=== PATIENT | female | born 1990 | race Caucasian/White ===

== ENCOUNTER 2016-12-03 09:46 | Inpatient (IN) ==
[2016-12-03 10:18] LABS: Bilirubin,Urine Negative (Negative); Blood,Urine Negative (Negative); Clarity,Urine Cloudy (Clear); Color,Urine Yellow (Yellow); Glucose,Urine (UA) Normal (Normal); Ketones,Urine Negative (Negative); Leukocyte Esterase,Urine Small (Negative); Nitrite,Urine Negative (Negative); PH,Urine 7.5 pH Units (5.0-8.0); Protein,Urine Negative (Neg-Trace); Specific Gravity,Urine 1.023 (1.010-1.025); Urobilinogen,Urine Normal (Normal)
[2016-12-03 10:22] LABS: Bacteria,Urine Moderate per hpf (None-Few); Hyaline Casts,Urine None Seen per lpf (None-Few); RBC,Urine 0-3 per hpf (0-3); Squamous Epithelial Cell,Urine Many per lpf (None-Few)
[2016-12-03 10:24] LABS: Basophils % 0.3 %; Eosinophils # 0.2 K/mcL (0.0-0.6); Eosinophils % 2.5 %; Hematocrit 42.1 % (35.3-44.9); Hemoglobin 13.3 g/dL (11.5-15.4); Immature Granulocytes % 0.3 % (0-4); Lymphocytes # 2.7 K/mcL (0.6-4.6); Lymphocytes % 28.7 %; Mean Corpuscular HGB Conc 31.6 g/dL (31.6-35.5); Mean Corpuscular Hemoglobin 25.6 pg (28.0-33.3); Mean Platelet Volume 9.4 fL (9.4-12.4); Monocytes # 0.9 K/mcL (0.0-1.3); Monocytes % 9.7 %; Neutrophils # 5.4 K/mcL (1.6-8.9); Platelet Count 329 K/mcL (140-400); Red Cell Distribution Width 13.3 % (11.5-14.5); Segmented Neutrophils % 58.5 %
[2016-12-03 10:25] LABS: Amphetamine Screen,Urine Negative ng/mL (Cutoff=1000); Barbiturate Screen,Urine Negative ng/mL (Cutoff=200); Benzodiazepines Screen,Urine Negative ng/mL (Cutoff=200); Cannabinoid Screen,Urine Negative ng/mL (Cutoff = 50); Cocaine Screen,Urine Negative ng/mL (Cutoff= 300); Opiate Screen,Urine Negative ng/mL (Cutoff=300); Phencyclidine Screen,Urine Negative ng/mL (Cutoff=25)
[2016-12-03 10:36] LABS: BUN/Creatinine Ratio 11 (6-26); Blood Urea Nitrogen 8 mg/dL (7-20); Calcium 9.4 mg/dL (8.6-10.8); Carbon Dioxide 23 mEq/L (19-29); Chloride 105 mEq/L (98-109); Glucose 91 mg/dL (70-99); Osmolality,Calculated 288 (280-300); Potassium 3.9 mEq/L (3.5-4.5); Sodium 140 mEq/L (136-145); eGFR For African Americans > 60 (> 60); eGFR For Non-African Americans > 60 (> 60)
[2016-12-03 10:39] LABS: Acetaminophen < 1.0 mcg/mL (10-30); Ethanol < 10 mg/dL (0-10); Salicylate < 5.0 mg/dL (15-30)
[2016-12-03 10:53] LABS: Thyroid Stimulating Hormone 2.382 mcIU/mL (0.350-4.840)
--- NOTE | 2016-12-03 11:29 | Emergency Department Note ---
Disposition Clinical Impression: Depression, Suicidal ideation Disposition: Admitted As Inpatient Condition: Good Referrals: NONE,PCP [Primary Care Provider] - Forms: ED Satisfaction Letter Time of Disposition: 13:27 Psych HPI - General Chief Complaint: ED Psychiatric Symptoms Stated Complaint: si Time Seen by Provider: 12/03/16 09:57 Source: patient Nursing Notes Reviewed: Yes Vital Signs Reviewed: Yes - History of Present Illness HPI Narrative: 26-year-old female presents emergency room for suicidal thoughts. Patient was seen by her psychiatrist pink slipped to the ER for depression and suicidal ideation. She states she does not have a current plan as thoughts of killing herself. No previous attempts. Long history of depression. No homicidal thoughts. She denies any drugs or alcohol. She states her entire life as well as upsets her. Her life has made her severely depressed to the point where she feels like she cannot go on. She lives with her family including her mother. - Related Data Home Medications Medication Instructions Recorded Confirmed Zolpidem [Ambien] 10 mg PO HS PRN 08/26/15 07/22/16 Omeprazole [PriLOSEC] 40 mg PO BID 04/24/16 07/22/16 lamoTRIgine [Lamictal] 75 mg PO BID 04/24/16 07/22/16 Previous Rx's Medication Instructions Recorded HydrOXYzine Pamoate [Vistaril] 50 mg PO Q6H PRN #20 capsule 07/22/16 predniSONE [PredniSONE] 20 mg PO DAILY #16 tablet 07/22/16 Allergies Allergy/AdvReac Type Severity Reaction Status Date / Time No Known Allergies Allergy Verified 07/22/16 20:19 Review of Systems: Gen.: No fevers or chills or new weakness Eyes: Denies double vision or any vision changes Ears: Denies any otalgia Pharynx: Denies sore throat CV: Denies chest pain. Denies palpitations Respiratory: Denies any cough or sputum production. No shortness of breath. GI: Denies any nausea, vomiting, diarrhea, constipation. Denies abdominal pain Neuro: Denies any headache. No problems with ambulation. No numbness. Skin: Denies any rashes or abrasions Psych: positive for depression and suicidal ideation Musculoskeletal: Denies any arthralgias or myalgias Past Medical History - Past Medical History Medical history: Reports: GERD Psychiatric history: Reports: anxiety, depression - Social History Smoking Status: Current every day smoker Smokeless Tobacco Status: No Alcohol use: Reports: occasionally Drug use: Reports: none Physical Exam HEENT: Head atraumatic normocephalic. Pharynx clear with no exudates. Oral mucosa moist. Uvula midline. TMs clear bilaterally. Trachea midline. No lymphadenopathy. Heart: Regular rate and rhythm. Normal S1 and S2. No gallops, rubs, or murmurs. Lungs: Clear to auscultation bilaterally. No evidence of any rhonchi wheezing or rales. Abdomen: Soft nontender nondistended. Positive bowel sounds. No peritoneal signs. Extremities: No evidence of cyanosis clubbing or edema. Neuro: Cranial nerves II through XII grossly intact. No focal motor or sensory deficits. Speech is clear. Skin: Normal color. dry. Psych: normal mentation. - General Limitations: no limitations General appearance: alert Course Vital Signs Temperature 98.8 F 12/03/16 09:47 Pulse Rate 73 12/03/16 09:47 Respiratory Rate 16 12/03/16 09:47 Blood Pressure 144/93 12/03/16 09:47 O2 Sat by Pulse Oximetry 97 12/03/16 09:47 Temperature 98.8 F 12/03/16 09:55 Pulse Rate 73 12/03/16 09:58 Respiratory Rate 16 12/03/16 09:58 Blood Pressure 144/93 12/03/16 09:58 O2 Sat by Pulse Oximetry 97 12/03/16 09:58 Oxygen Delivery Oxygen Delivery Room Air Psych - MDM Narrative Medical decision making narrative: pt likely to be admitted for psych eval labs all reviewed awaiting 1A placement - Medical Records Medical records reviewed: Yes I reviewed the patient's medical records. - Lab Data Lab results reviewed: Yes I reviewed the patient's lab results. Result diagrams: 12/03/16 10:16 12/03/16 10:16 Lab Results 12/03/16 12/03/16 12/03/16 Range/Units 10:12 10:13 10:16 WBC (4.3-11.1) K/mcL RBC (3.82-4.97) M/mcL Hgb (11.5-15.4) g/dL Hct (35.3-44.9) % MCV (83.0-100.0) fL MCH (28.0-33.3) pg MCHC (31.6-35.5) g/dL RDW (11.5-14.5) % Plt Count (140-400) K/mcL MPV (9.4-12.4) fL Immature Gran % (0-4) % Seg Neutrophils % % Lymphocytes % % Monocytes % % Eosinophils % % Basophils % % Neutrophils # (1.6-8.9) K/mcL Lymphocytes # (0.6-4.6) K/mcL Monocytes # (0.0-1.3) K/mcL Eosinophils # (0.0-0.6) K/mcL Basophils # (0.0-0.2) K/mcL Sodium (136-145) mEq/L Potassium (3.5-4.5) mEq/L Chloride (98-109) mEq/L Carbon Dioxide (19-29) mEq/L BUN (7-20) mg/dL Creatinine (0.57-1.11) mg/dL Est GFR ( Amer) (> 60) Est GFR (Non-Af Amer) (> 60) BUN/Creatinine Ratio (6-26) Glucose (70-99) mg/dL Calculated Osmolality (280-300) Calcium (8.6-10.8) mg/dL TSH (0.350-4.840) mcIU/mL Serum , Qual Negative (Negative) Urine Color Yellow (Yellow) Urine Clarity Cloudy A (Clear) Urine pH 7.5 (5.0-8.0) pH Units Ur Specific [place] 1.023 (1.010-1.025) Urine Protein Negative (Neg-Trace) mg/dL Urine Glucose (UA) Normal (Normal) mg/dL Urine Ketones Negative (Negative) mg/dL Urine Blood Negative (Negative) Urine Nitrite Negative (Negative) Urine Bilirubin Negative (Negative) Urine Urobilinogen Normal (Normal) mg/dL Ur Leukocyte Esterase Small H (Negative) Urine Microscopic RBC 0-3 (0-3) per hpf Urine Microscopic WBC 5-15 H (0-3) per hpf Ur Squamous Epith Cells Many H (None-Few) per lpf Urine Bacteria Moderate H (None-Few) per hpf Hyaline Casts None Seen (None-Few) per lpf Salicylates (15-30) mg/dL Urine Opiates Screen Negative (Lqepev=068) ng/mL Acetaminophen (10-30) mcg/mL Ur Barbiturates Screen Negative (Oeahry=806) ng/mL Ur Phencyclidine Scrn Negative (Cutoff=25) ng/mL Ur Amphetamines Screen Negative (Phrlfm=4146) ng/mL U Benzodiazepines Scrn Negative (Rxjyve=574) ng/mL Urine Cocaine Screen Negative (Cutoff= 300) ng/mL U Marijuana (THC) Screen Negative (Cutoff = 50) ng/mL Ethyl Alcohol (0-10) mg/dL 12/03/16 12/03/16 Range/Units 10:16 10:16 WBC 9.2 (4.3-11.1) K/mcL RBC 5.20 H (3.82-4.97) M/mcL Hgb 13.3 (11.5-15.4) g/dL Hct 42.1 (35.3-44.9) % MCV 81.0 L (83.0-100.0) fL MCH 25.6 L (28.0-33.3) pg MCHC 31.6 (31.6-35.5) g/dL RDW 13.3 (11.5-14.5) % Plt Count 329 (140-400) K/mcL MPV 9.4 (9.4-12.4) fL Immature Gran % 0.3 (0-4) % Seg Neutrophils % 58.5 % Lymphocytes % 28.7 % Monocytes % 9.7 % Eosinophils % 2.5 % Basophils % 0.3 % Neutrophils # 5.4 (1.6-8.9) K/mcL Lymphocytes # 2.7 (0.6-4.6) K/mcL Monocytes # 0.9 (0.0-1.3) K/mcL Eosinophils # 0.2 (0.0-0.6) K/mcL Basophils # 0.0 (0.0-0.2) K/mcL Sodium 140 (136-145) mEq/L Potassium 3.9 (3.5-4.5) mEq/L Chloride 105 (98-109) mEq/L Carbon Dioxide 23 (19-29) mEq/L BUN 8 (7-20) mg/dL Creatinine 0.71 (0.57-1.11) mg/dL Est GFR ( Amer) > 60 (> 60) Est GFR (Non-Af Amer) > 60 (> 60) BUN/Creatinine Ratio 11 (6-26) Glucose 91 (70-99) mg/dL Calculated Osmolality 288 (280-300) Calcium 9.4 (8.6-10.8) mg/dL TSH 2.382 (0.350-4.840) mcIU/mL Serum , Qual (Negative) Urine Color (Yellow) Urine Clarity (Clear) Urine pH (5.0-8.0) pH Units Ur Specific [place] (1.010-1.025) Urine Protein (Neg-Trace) mg/dL Urine Glucose (UA) (Normal) mg/dL Urine Ketones (Negative) mg/dL Urine Blood (Negative) Urine Nitrite (Negative) Urine Bilirubin (Negative) Urine Urobilinogen (Normal) mg/dL Ur Leukocyte Esterase (Negative) Urine Microscopic RBC (0-3) per hpf Urine Microscopic WBC (0-3) per hpf Ur Squamous Epith Cells (None-Few) per lpf Urine Bacteria (None-Few) per hpf Hyaline Casts (None-Few) per lpf Salicylates < 5.0 L (15-30) mg/dL Urine Opiates Screen (Kshcvn=299) ng/mL Acetaminophen < 1.0 L (10-30) mcg/mL Ur Barbiturates Screen (Ieznkw=335) ng/mL Ur Phencyclidine Scrn (Cutoff=25) ng/mL Ur Amphetamines Screen (Qtpjxi=4512) ng/mL U Benzodiazepines Scrn (Wohypj=454) ng/mL Urine Cocaine Screen (Cutoff= 300) ng/mL U Marijuana (THC) Screen (Cutoff = 50) ng/mL Ethyl Alcohol < 10 (0-10) mg/dL Psychiatric Medical Clearance - Medical Clearance Checklist Medical History: Acute gastritis (Inactive) Contact dermatitis (Inactive) No Social History Section defined Current Vitals: Last Vital Signs Temp 98.8 F 12/03/16 09:55 Pulse 73 12/03/16 09:58 Resp 16 12/03/16 09:58 BP 144/93 12/03/16 09:58 Pulse Ox 97 12/03/16 09:58 Psychiatric Lab Panel: Drug Levels and Toxicity 12/03/16 12/03/16 10:13 10:16 Urine Opiates Screen Negative Acetaminophen < 1.0 L Ur Barbiturates Screen Negative Ur Phencyclidine Scrn Negative Ur Amphetamines Screen Negative U Benzodiazepines Scrn Negative Urine Cocaine Screen Negative U Marijuana (THC) Screen Negative Ethyl Alcohol < 10 Abnormal Labs: Abnormal lab results RBC 5.20 M/mcL (3.82-4.97) H 12/03/16 10:16 MCV 81.0 fL (83.0-100.0) L 12/03/16 10:16 MCH 25.6 pg (28.0-33.3) L 12/03/16 10:16 Urine Clarity Cloudy (Clear) A 12/03/16 10:12 Ur Leukocyte Esterase Small (Negative) H 12/03/16 10:12 Urine Microscopic WBC 5-15 per hpf (0-3) H 12/03/16 10:12 Ur Squamous Epith Cells Many per lpf (None-Few) H 12/03/16 10:12 Urine Bacteria Moderate per hpf (None-Few) H 12/03/16 10:12 Salicylates < 5.0 mg/dL (15-30) L 12/03/16 10:16 Acetaminophen < 1.0 mcg/mL (10-30) L 12/03/16 10:16 Statement of Medical Clearance: I have evaluated the patient, reviewed diagnostic information, and certify that the patient's medical condition is sufficiently stable that transfer to the psychiatric unit does not pose a significant risk of deterioration.
[2016-12-03] MEDS ORDERED: Acetaminophen 325 MG TABLET PO ONE (12:29)
[2016-12-03] MEDS ORDERED: Mag Hydrox/Al Hydrox/Simeth 30 ML UDC PO PRN (15:28)
[2016-12-03] MEDS ORDERED: MOM Conc 10 ML UD.LIQ PO PRN (15:28)
[2016-12-03] MEDS ORDERED: Haloperidol Lactate 5 MG/ML VIAL IM PRN (15:28)
[2016-12-03] MEDS ORDERED: *HR* LORazepam 2 MG/ML VIAL IM PRN (15:28)
[2016-12-03] MEDS ORDERED: *HR* LORazepam 1 MG TABLET PO PRN (15:28)
[2016-12-03] MEDS ORDERED: hydrOXYzine pamoate 25 MG CAPSULE PO PRN (15:28)
[2016-12-03] MEDS ORDERED: Acetaminophen 325 MG TABLET PO PRN (15:28)
[2016-12-03] MEDS ORDERED: Ibuprofen 400 MG TABLET PO PRN (15:28)
[2016-12-03] MEDS ORDERED: clonazePAM 1 MG TABLET PO PRN (15:45)
[2016-12-03] MEDS ORDERED: ARIPiprazole 2 MG TABLET PO SCH (21:00)
[2016-12-03] MEDS: traZODone 50 MG TABLET PO SCH (21:05)
[2016-12-04] MEDS: traZODone 50 MG TABLET PO SCH ×2 (08:46→20:07)
[2016-12-04] MEDS: Loratadine 10 MG TABLET PO SCH (08:46)
--- NOTE | 2016-12-04 10:35 | Psychiatry History & Physical ---
Date of Encounter: 12/04/16 Time of Encounter: 10:00 History of Present Illness Patient Stated Chief Complaint: I had been having thoughts of hurting myself. Medicare Admission Attestation: For traditional Medicare patients the provided hospital inpatient services are reasonable and necessary and in the case of services not specified as inpatient -only under 42 CFR 419.22 (n), that they are appropriately provided as inpatient services in accordance 42 CFR 412.3. For Critical Access Hospital the patient may reasonably be expected to be discharged or transferred to a hospital within 96 hours after admission to the Critical Access Hospital. 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 Ms. Walter has h/o Depression , panic attacks and has been compliant with medication but her depression is getting worse, medicine i am on seem to help my anger problem but seem to make my depression worse, increase suicidal ideation , guilty , hopeless, worthless and no motivation,anhedonia , states i have problem reading and i am reading level of elementary school, it is embarassing , when i used to work people at work made fun of me and they thought i was doing this to get off the work, it was too much so i quit my job. it was my birthday yesterday and i just could not handle it, felt burden to her family and has not accomplished anything patient is tearful during session , minimal eye contact, remains dysphoric and severely depress. she also has panic attacks and increase social anxiety, i am scared to drive and isolating her self. denies any psychosis or manic episodes, no substance use history. Past Med Surg Social Fam HX - Past Medical History Medical history: GERD - Past Psychiatric History Psychiatric history: Reports: anxiety, depression Family psychiatric history: Yes Family History of Suicide: Attempted (paternal side has schizophrenia and suicide) - Social History Smoking Status: Current every day smoker Smokeless Tobacco Status: No Alcohol use: occasionally Drug use: none Occupational status: unemployed Current living situation: Home, With Family Activity Level: Independent ambulation Recent Out of Country Travel Within the Last 8 Weeks: No Exposure or Possible Exposure to Illness During Travel: No - Family History Mother Race: Living Status: Still Living (mother has depression on medication , patient doesnot know what.) Medications & Allergies ARIPiprazole [Abilify] 2 mg PO HS 12/03/16 [History] Loratadine 10 mg PO DAILY 12/03/16 [History] PriLOSEC 40 mg PO BID 12/03/16 [History] clonazePAM [Klonopin] 1 mg PO DAILY 12/03/16 [History] traZODone [TraZODone] 50 mg PO BID 12/03/16 [History] 3 Allergy/AdvReac Type Severity Reaction Status Date / Time lamotrigine [From Lamictal] Allergy Rash Verified 12/03/16 15:51 Review of Systems Constitutional: Denies: fever, chills, weakness, weight change Eyes: Denies: eye pain, vision change Ears, Nose, Throat: Denies: ear pain, throat pain, dental pain, hearing loss, congestion Cardiovascular: Denies: chest pain, palpitations, dyspnea on exertion Respiratory: Denies: cough, dyspnea, wheezes Gastrointestinal: Denies: abdominal pain, nausea, vomiting, diarrhea, constipation Genitourinary male: Denies: urgency, dysuria, frequency, genital lesions Genitourinary female: Denies: urgency, dysuria, frequency, abnormal menses, dyspareunia Musculoskeletal: Denies: joint swelling, joint pain Integumentary: Denies: rash, lesions, pruritus Neurological: Denies: headache, weakness, numbness, memory loss Psychiatric: Reports: depression, anxiety, abnormal sleep pattern, suicidal ideation, anhedonia, hopelessness, mood swings, panic attacks Endocrine: Denies: fatigue, heat or cold intolerance Hematologic/Lymphatic: Denies: easy bruising, lymphadenopathy Allergic/Immunologic: Denies: urticaria, itchy eyes Mental Status Exam Patient orientation: Yes Person, Yes Time, Yes Place Level of alertness: Alert Patient appearance: Appropriate Behavior: cooperative, guarded, withdrawn Psychomotor activity: Slowed Eye contact: Minimal Contact Mood description: Depressed Affect description: congruent with mood, tearful, dysphoric Speech pattern: Slowed Speech volume: Soft/Quiet Thought process: Slowed Thinking Thought content: Yes Guilt Attention span: Unable to Sustain Attention Memory description: Grossly Intact Patient reliability: Reliable Historian Intelligence estimate: Average Judgment: Limited Insight: Full Exam - HEENT Head exam IM: Present: atraumatic, normal inspection, normocephalic Eye exam IM: Present: normal appearance ENT exam IM: Present: normal exam - Neurological Neurological exam IM: Present: alert, CN II-XII intact, normal gait - Skin Skin exam IM: Present: dry (tattoos on legs and arm.), warm Results - Vital Signs Vital signs: Temp Pulse Resp BP Pulse Ox 97.8 F 76 16 140/84 97 12/04/16 08:06 12/04/16 08:06 12/04/16 08:06 12/04/16 08:06 12/03/16 09:58 - Labs Labs: Laboratory Last Values WBC 9.2 K/mcL (4.3-11.1) 12/03/16 10:16 RBC 5.20 M/mcL (3.82-4.97) H 12/03/16 10:16 Hgb 13.3 g/dL (11.5-15.4) 12/03/16 10:16 Hct 42.1 % (35.3-44.9) 12/03/16 10:16 MCV 81.0 fL (83.0-100.0) L 12/03/16 10:16 MCH 25.6 pg (28.0-33.3) L 12/03/16 10:16 MCHC 31.6 g/dL (31.6-35.5) 12/03/16 10:16 RDW 13.3 % (11.5-14.5) 12/03/16 10:16 Plt Count 329 K/mcL (140-400) 12/03/16 10:16 MPV 9.4 fL (9.4-12.4) 12/03/16 10:16 Immature Gran % 0.3 % (0-4) 12/03/16 10:16 Seg Neutrophils % 58.5 % 12/03/16 10:16 Lymphocytes % 28.7 % 12/03/16 10:16 Monocytes % 9.7 % 12/03/16 10:16 Eosinophils % 2.5 % 12/03/16 10:16 Basophils % 0.3 % 12/03/16 10:16 Neutrophils # 5.4 K/mcL (1.6-8.9) 12/03/16 10:16 Lymphocytes # 2.7 K/mcL (0.6-4.6) 12/03/16 10:16 Monocytes # 0.9 K/mcL (0.0-1.3) 12/03/16 10:16 Eosinophils # 0.2 K/mcL (0.0-0.6) 12/03/16 10:16 Basophils # 0.0 K/mcL (0.0-0.2) 12/03/16 10:16 Sodium 140 mEq/L (136-145) 12/03/16 10:16 Potassium 3.9 mEq/L (3.5-4.5) 12/03/16 10:16 Chloride 105 mEq/L (98-109) 12/03/16 10:16 Carbon Dioxide 23 mEq/L (19-29) 12/03/16 10:16 BUN 8 mg/dL (7-20) 12/03/16 10:16 Creatinine 0.71 mg/dL (0.57-1.11) 12/03/16 10:16 Est GFR ( Amer) > 60 (> 60) 12/03/16 10:16 Est GFR (Non-Af Amer) > 60 (> 60) 12/03/16 10:16 BUN/Creatinine Ratio 11 (6-26) 12/03/16 10:16 Glucose 91 mg/dL (70-99) 12/03/16 10:16 Calculated Osmolality 288 (280-300) 12/03/16 10:16 Calcium 9.4 mg/dL (8.6-10.8) 12/03/16 10:16 TSH 2.382 mcIU/mL (0.350-4.840) 12/03/16 10:16 Serum , Qual Negative (Negative) 12/03/16 10:16 Urine Color Yellow (Yellow) 12/03/16 10:12 Urine Clarity Cloudy (Clear) A 12/03/16 10:12 Urine pH 7.5 pH Units (5.0-8.0) 12/03/16 10:12 Ur Specific [place] 1.023 (1.010-1.025) 12/03/16 10:12 Urine Protein Negative mg/dL (Neg-Trace) 12/03/16 10:12 Urine Glucose (UA) Normal mg/dL (Normal) 12/03/16 10:12 Urine Ketones Negative mg/dL (Negative) 12/03/16 10:12 Urine Blood Negative (Negative) 12/03/16 10:12 Urine Nitrite Negative (Negative) 12/03/16 10:12 Urine Bilirubin Negative (Negative) 12/03/16 10:12 Urine Urobilinogen Normal mg/dL (Normal) 12/03/16 10:12 Ur Leukocyte Esterase Small (Negative) H 12/03/16 10:12 Urine Microscopic RBC 0-3 per hpf (0-3) 12/03/16 10:12 Urine Microscopic WBC 5-15 per hpf (0-3) H 12/03/16 10:12 Ur Squamous Epith Cells Many per lpf (None-Few) H 12/03/16 10:12 Urine Bacteria Moderate per hpf (None-Few) H 12/03/16 10:12 Hyaline Casts None Seen per lpf (None-Few) 12/03/16 10:12 Salicylates < 5.0 mg/dL (15-30) L 12/03/16 10:16 Urine Opiates Screen Negative ng/mL (Jkoxxe=585) 12/03/16 10:13 Acetaminophen < 1.0 mcg/mL (10-30) L 12/03/16 10:16 Ur Barbiturates Screen Negative ng/mL (Ydifmm=846) 12/03/16 10:13 Ur Phencyclidine Scrn Negative ng/mL (Cutoff=25) 12/03/16 10:13 Ur Amphetamines Screen Negative ng/mL (Zphxbx=7192) 12/03/16 10:13 U Benzodiazepines Scrn Negative ng/mL (Qmndzo=398) 12/03/16 10:13 Urine Cocaine Screen Negative ng/mL (Cutoff= 300) 12/03/16 10:13 U Marijuana (THC) Screen Negative ng/mL (Cutoff = 50) 12/03/16 10:13 Ethyl Alcohol < 10 mg/dL (0-10) 12/03/16 10:16 Assessment and Plan (1) Suicidal ideation Current visit: Yes Status: Acute Plan: Admit inpatient for safety and stabilization, Close observation, Suicide Precautions per unit protocol, Encourage participation in unit milieu, Group Therapy, Monitor sleep, Monitor appetite, Family/Supportive other meeting Additional Plan: admitted to inpatient for depression , suicidal stabilizatin. antidepressant started and medication changes done . Risks, benefits, side effects, alternatives discussed w/pt: Yes Patient agreeable to treatment: Yes Plans for Post Hospital Care: Home Estimated Length of Stay (Days): 4 (2) Depression Current visit: Yes Status: Acute Plan: Admit inpatient for safety and stabilization, Close observation, Suicide Precautions per unit protocol, Encourage participation in unit milieu, Group Therapy, Monitor sleep, Monitor appetite, Family/Supportive other meeting Risks, benefits, side effects, alternatives discussed w/pt: Yes Patient agreeable to treatment: Yes Plans for Post Hospital Care: Home Estimated Length of Stay (Days): 4 Qualifiers: Depression Type: major depressive disorder Major depression recurrence: recurrent Major depression episode severity: severe Psychotic features: without psychotic features Qualified Code(s): F33.2 - Major depressive disorder, recurrent severe without psychotic features (3) Learning disability Current visit: Yes Status: Chronic Plan: Admit inpatient for safety and stabilization, Close observation, Suicide Precautions per unit protocol, Encourage participation in unit milieu, Group Therapy, Monitor sleep, Monitor appetite, Family/Supportive other meeting Additional Plan: admitted to inpatient for suicidal and depression stabilization andd for her safety. start anti depressant. increase abilify for depression Risks, benefits, side effects, alternatives discussed w/pt: Yes Patient agreeable to treatment: Yes Plans for Post Hospital Care: Home Estimated Length of Stay (Days): 4
[2016-12-04] MEDS: FLUoxetine 20 MG CAPSULE PO SCH (11:53)
[2016-12-04] MEDS: ARIPiprazole 5 MG TABLET PO SCH (20:07)
[2016-12-05] MEDS: Loratadine 10 MG TABLET PO SCH (07:59)
[2016-12-05] MEDS: FLUoxetine 20 MG CAPSULE PO SCH (07:59)
--- NOTE | 2016-12-05 12:02 | Psychiatry Progress Note ---
Date of Encounter: 12/05/16 Time of Encounter: 11:35 Subjective Interval history: Patient seen today case d/w staff patient showing some improvement. her meds were increased and she denies side effects. states i am scared to go but i am not thinking about hurting myself, being here makes me realize what i have outside. talked about her family , they are all smart and i am not, she is still sad, lack of motivation , isolation. Review of Systems Psychiatric: Reports: depression, anxiety, abnormal sleep pattern, suicidal ideation, anhedonia, hopelessness, mood swings, panic attacks Objective: Exam Patient orientation: Yes Person, Yes Time, Yes Place Level of alertness: Alert Patient appearance: Appropriate Behavior: anxious, withdrawn Psychomotor activity: Slowed Eye contact: Maintains Eye Contact Mood description: Depressed, Anxious Affect description: dysphoric Speech pattern: Slowed Speech volume: Soft/Quiet Thought process: Slowed Thinking Thought content: Yes Preoccupation Judgment: Limited Insight: Partial Results - Vital Signs Vital Signs: Temp Pulse Resp BP Pulse Ox 97.7 F 83 18 130/73 97 12/05/16 09:00 12/05/16 09:00 12/05/16 09:00 12/05/16 09:00 12/03/16 09:58 Assessment and Plan (1) Suicidal ideation Current visit: Yes Status: Acute Risks, benefits, side effects, alternatives discussed w/pt: Yes Patient agreeable to treatment: Yes (2) Depression Current visit: Yes Status: Acute Risks, benefits, side effects, alternatives discussed w/pt: Yes Patient agreeable to treatment: Yes Qualifiers: Depression Type: major depressive disorder Major depression recurrence: recurrent Major depression episode severity: severe Psychotic features: without psychotic features (3) Learning disability Current visit: Yes Status: Chronic Risks, benefits, side effects, alternatives discussed w/pt: Yes Patient agreeable to treatment: Yes Consult Discharge Plan - Plan Referrals: [facility] [Outside] - 01/05/17 11:20 am (The above appointment is with Dr. Montiel for outpatient psychiatric assessment and medication management services. You will also see Melody Cavanaugh for mental health counseling services on 01/06/2017 at 2:00pm. Please arrive 10 minutes early to all appointments to complete the check-in process. Please bring your insurance card (or [facility]) and photo ID. If you are unable to keep this appointment, 24 hour business notice of cancellation is expected. The above appointment(s) reflects first availability. You may contact the office regularly to check for cancellations that may allow you to be seen sooner. )
[2016-12-05] MEDS: traZODone 50 MG TABLET PO SCH (21:14)
[2016-12-05] MEDS: ARIPiprazole 5 MG TABLET PO SCH (21:16)
[2016-12-06] MEDS: Loratadine 10 MG TABLET PO SCH (08:09)
[2016-12-06] MEDS: FLUoxetine 20 MG CAPSULE PO SCH (08:10)
--- NOTE | 2016-12-06 13:09 | Psychiatry Progress Note ---
Date of Encounter: 12/06/16 Time of Encounter: 12:00 Subjective Interval history: Patient seen today , porfirio doing better and slept better, only woke up once and been trying to talk to more people, anxiety still. she denies suicidal ideation and feels better. no psychosis and has support from family. discharge tommorow. Review of Systems Psychiatric: Reports: depression, anxiety, abnormal sleep pattern, anhedonia, hopelessness, mood swings, panic attacks Objective: Exam Patient orientation: Yes Person, Yes Time, Yes Place Level of alertness: Alert Patient appearance: Appropriate Behavior: cooperative, anxious Psychomotor activity: Normal Eye contact: Maintains Eye Contact Mood description: Anxious Affect description: congruent with mood Speech pattern: Coherent Speech volume: Normal Thought process: Intact Thought content: Yes Guilt Judgment: Fair Insight: Partial Results - Vital Signs Vital Signs: Temp Pulse Resp BP Pulse Ox 97.6 F 71 16 131/82 97 12/06/16 09:00 12/06/16 09:00 12/06/16 09:00 12/06/16 09:00 12/03/16 09:58 Assessment and Plan (1) Suicidal ideation Current visit: Yes Status: Acute Risks, benefits, side effects, alternatives discussed w/pt: Yes Patient agreeable to treatment: Yes (2) Depression Current visit: Yes Status: Acute Risks, benefits, side effects, alternatives discussed w/pt: Yes Patient agreeable to treatment: Yes Qualifiers: Depression Type: major depressive disorder Major depression recurrence: recurrent Major depression episode severity: severe Psychotic features: without psychotic features (3) Learning disability Current visit: Yes Status: Chronic Risks, benefits, side effects, alternatives discussed w/pt: Yes Patient agreeable to treatment: Yes Consult Discharge Plan - Plan Referrals: [facility] [Outside] - 01/05/17 11:20 am (The above appointment is with Dr. Montiel for outpatient psychiatric assessment and medication management services. You will also see Melody Cavanaugh for mental health counseling services on 01/06/2017 at 2:00pm. Please arrive 10 minutes early to all appointments to complete the check-in process. Please bring your insurance card (or [facility]) and photo ID. If you are unable to keep this appointment, 24 hour business notice of cancellation is expected. The above appointment(s) reflects first availability. You may contact the office regularly to check for cancellations that may allow you to be seen sooner. )
[2016-12-06] MEDS: traZODone 50 MG TABLET PO SCH (20:37)
[2016-12-06] MEDS: ARIPiprazole 5 MG TABLET PO SCH (20:37)
[2016-12-07] MEDS: FLUoxetine 20 MG CAPSULE PO SCH (08:50)
[2016-12-07] MEDS: Loratadine 10 MG TABLET PO SCH (08:50)
[2016-12-07 09:07] VITALS: BP 132/77
--- NOTE | 2016-12-07 12:11 | Discharge Summary ---
Date of Encounter: 12/07/16 Time of Encounter: 11:40 Diagnosis - Discharge Diagnosis (1) Suicidal ideation Status: Resolved Comments: patient not suicidal or homicidal at present. (2) Depression Status: Acute Comments: depression improved , prozac added to plan and abilify increased to 5 mg . Qualifiers: Depression Type: major depressive disorder Major depression recurrence: recurrent Major depression episode severity: severe Psychotic features: without psychotic features Qualified Code(s): F33.2 - Major depressive disorder, recurrent severe without psychotic features (3) Learning disability Status: Chronic Medications - Discharge Medications Prescriptions: ARIPiprazole [Abilify] 5 mg PO HS #30 tablet FLUoxetine HCl [Prozac] 20 mg PO DAILY #30 capsule traZODone [TraZODone] 75 mg PO HS #30 tablet Loratadine 10 mg PO DAILY 12/03/16 [History] PriLOSEC 40 mg PO BID 12/03/16 [History] clonazePAM [Klonopin] 1 mg PO DAILY 12/03/16 [History] ARIPiprazole [Abilify] 5 mg PO HS #30 tablet 12/07/16 [Rx] FLUoxetine HCl [Prozac] 20 mg PO DAILY #30 capsule 12/07/16 [Rx] Omeprazole [PriLOSEC] 40 mg PO BID capsule. 12/07/16 [Rx] traZODone [TraZODone] 75 mg PO HS #30 tablet 12/07/16 [Rx] 3 Allergy/AdvReac Type Severity Reaction Status Date / Time lamotrigine [From Lamictal] Allergy Rash Verified 12/03/16 15:51 Provider Date of admission: 12/03/16 13:57 Primary care physician: PCP NONE Assessment and Plan - Patient/Caregiver Discharge Instructions Activity: resume usual activities as tolerated Diet: regular diet - Follow up Plan Follow up with: [facility] [Outside] - 01/05/17 11:20 am (The above appointment is with Dr. Montiel for outpatient psychiatric assessment and medication management services. You will also see Melody Cavanaugh for mental health counseling services on 01/06/2017 at 2:00pm. Please arrive 10 minutes early to all appointments to complete the check-in process. Please bring your insurance card (or [facility] award letter) and photo ID. If you are unable to keep this appointment, 24 hour business notice of cancellation is expected. The above appointment(s) reflects first availability. You may contact the office regularly to check for cancellations that may allow you to be seen sooner. ) Functional capacity at discharge: independent ambulation Overall status at discharge: Stable Disposition: Home, Self-Care Hospital Course Hospital course: Ms. Tariq is a 26 year old female was admitted after being referred by her outpatient psychiatrist for worsening of depression and suicidal ideas. She has been compliant with her medications and still getting increasingly depressed . During course of treatment she improved , she had no suicidal thoughts, depression improved and anxiety showed marked improvement as per her i am getting nails now, she used to bite all her nails. she has short and keno terminal operator goals, no drug use and has support from family. Time spent discussing smoking cessation with patient: 3 to 10 minutes Does patient wish to continue nicotine replacement upon disc: No - Time Spent with Patient Total time spent providing and/or coordinating discharge services: Less than 30 minutes Quality - Multiple Antipsychotics Patient discharged on 2 or more antipsychotic medications: No Procedures - Procedures Procedures: Medication Management, Crisis Stabilization, Supportive Therapy, Group Therapy, Psychoeducational Therapy Mental Status Exam - Mental Status Exam Patient orientation: Yes Person, Yes Time, Yes Place Level of alertness: Alert Patient appearance: Appropriate Behavior: calm, cooperative Psychomotor activity: Normal Eye contact: Maintains Eye Contact Mood description: Euthymic/stable Affect description: congruent with mood Speech pattern: Coherent Speech Volume: Normal Thought process: Intact Thought Content: Yes Intact Judgment: Good Insight: Full
== END 2016-12-07 13:40 | disposition home or self-care (01) | DRG 751 ==
LOC: EMEROO 09:46 → 1ANU 13:50
PROVIDERS: ADMIT Psychiatry & Neurology Psychiatry; ATTEND Psychiatry & Neurology Psychiatry